=== PATIENT | female | born 1990 | race Caucasian/White ===

== ENCOUNTER 2016-05-26 19:25 | Emergency (ER) | payer MEDICAID ==
[2016-05-26 20:34] VITALS: BP 110/77
== END 2016-05-26 20:34 | disposition home or self-care (01) ==
LOC: ED 19:25
DX: N10 Acute pyelonephritis (principal); K21.9 Gastro-esophageal reflux disease without esophagitis; Z79.899 Other long term (current) drug therapy; Z88.8 Allergy status to other drugs, medicaments and biological substances
CPT/HCPCS: J0696

== ENCOUNTER 2016-06-21 00:07 | Emergency (ER) | payer MEDICAID ==
[2016-06-21 00:44] LABS: BASOPHIL % 0.1 % (0-2); PLATELET COUNT 233 x10^3mcL (130-400); RED CELL DISTRIBUTION WIDTH 13.2 % (11.5-14.5)
[2016-06-21 00:56] LABS: CALCIUM 8.8 mg/dL (8.5-10.1); CARBON DIOXIDE 23.8 mmol/L (21-32); CHLORIDE SERUM 106 mmol/L (98-107); CREATININE SERUM 0.6 mg/dL (0.6-1.0); GFR1 > 60 mL/min; GLUCOSE SERUM 100 mg/dL (74-106); POTASSIUM SERUM 3.5 mmol/L (3.5-5.1); SODIUM SERUM 140 mmol/L (136-145)
[2016-06-21 01:03] LABS: ALBUMIN 4.3 g/dL (3.4-5.0); ALKALINE PHOSPHATASE 38 U/L (46-116); ALT/SGPT 23 U/L (14-59); AST/SGOT 15 U/L (15-37); BILIRUBIN TOTAL 0.24 mg/dL (0.20-1.00); LIPASE 336 IU/L (73-393)
[2016-06-21 01:09] LABS: TOTAL PROTEIN, SERUM 8.3 g/dL (6.4-8.2)
[2016-06-21 02:32] VITALS: BP 102/60
== END 2016-06-21 02:32 | disposition home or self-care (01) ==
LOC: ED 00:07
PROVIDERS: Emergency Medicine
DX: R11.2 Nausea with vomiting, unspecified (principal); R42 Dizziness and giddiness; R10.10 Upper abdominal pain, unspecified
CPT/HCPCS: J2405; J7030

== ENCOUNTER 2016-06-28 18:59 | Emergency (ER) | payer MEDICAID ==
[2016-06-28 20:29] LABS: PLATELET COUNT 246 x10^3mcL (130-400); RED CELL DISTRIBUTION WIDTH 13.1 % (11.5-14.5)
[2016-06-28 20:37] LABS: CALCIUM 9.5 mg/dL (8.5-10.1); CARBON DIOXIDE 23.4 mmol/L (21-32); CHLORIDE SERUM 103 mmol/L (98-107); CREATININE SERUM 0.8 mg/dL (0.6-1.0); GFR1 > 60 mL/min; GLUCOSE SERUM 106 mg/dL (74-106); POTASSIUM SERUM 4.2 mmol/L (3.5-5.1); SODIUM SERUM 140 mmol/L (136-145)
[2016-06-28 20:41] LABS: ALBUMIN 4.9 g/dL (3.4-5.0); ALKALINE PHOSPHATASE 55 U/L (46-116); ALT/SGPT 30 U/L (14-59); AMYLASE 77 U/L (25-115); AST/SGOT 25 U/L (15-37); BILIRUBIN TOTAL 0.3 mg/dL (0.20-1.00); LIPASE 313 IU/L (73-393)
[2016-06-28 20:47] LABS: TOTAL PROTEIN, SERUM 9.5 g/dL (6.4-8.2)
[2016-06-28 21:06] LABS: MONOCYTE 4 % (0-7); SEGMENTED NEUTROPHILS 76 % (37-75)
[2016-06-28 21:07] LABS: BAND NEUTROPHIL 13 % (0-10); rbc morphology (normal/abnorm) NORMAL (NORMAL)
[2016-06-28 21:21] LABS: AMPHETAMINE QUAL UR NONE DETECTED (NEG <=1000)
[2016-06-29 01:13] VITALS: BP 102/60
== END 2016-06-29 01:13 | disposition home or self-care (01) ==
LOC: ED 18:59
PROVIDERS: Emergency Medicine
DX: R10.9 Unspecified abdominal pain (principal); R11.10 Vomiting, unspecified; R19.7 Diarrhea, unspecified; N92.0 Excessive and frequent menstruation with regular cycle
CPT/HCPCS: 83880; 87046; 87046-59; J2405; J3010; J7030

== ENCOUNTER 2017-02-25 13:53 | Emergency (ER) | payer OTHER ==
[2017-02-25 16:19] VITALS: BP 110/64
== END 2017-02-25 16:19 | disposition home or self-care (01) ==
LOC: ED 13:53
DX: R51 Headache (principal); Z88.8 Allergy status to other drugs, medicaments and biological substances
CPT/HCPCS: J1885; J8597; Q0163

== ENCOUNTER 2018-04-05 20:26 | Emergency (ER) | payer OTHER ==
[~2018-04-05] VITALS: Ht 157.5 cm; Wt 66.7 kg
[2018-04-05 20:33] VITALS: Ht 157.5 cm; Wt 66.7 kg
[2018-04-06 00:19] VITALS: BP 106/77
== END 2018-04-06 00:19 | disposition home or self-care (01) ==
LOC: ED 20:26
DX: R51 Headache (principal); R11.0 Nausea; H53.8 Other visual disturbances; Z88.8 Allergy status to other drugs, medicaments and biological substances
CPT/HCPCS: J0780; J1885; Q0162

== ENCOUNTER 2018-08-22 19:07 | Emergency (ER) | payer OTHER ==
[~2018-08-22] VITALS: Ht 157.5 cm; Wt 70.8 kg
[2018-08-22 19:19] VITALS: Ht 157.5 cm; Wt 70.8 kg
[2018-08-22 20:20] VITALS: BP 110/61
== END 2018-08-22 20:20 | disposition home or self-care (01) ==
LOC: ED 19:07
DX: G56.02 Carpal tunnel syndrome, left upper limb (principal); Z88.8 Allergy status to other drugs, medicaments and biological substances

== ENCOUNTER 2018-12-21 16:44 | Emergency (ER) | payer OTHER ==
[~2018-12-21] VITALS: Ht 157.5 cm; Wt 71.3 kg
[2018-12-21 17:02] VITALS: Ht 157.5 cm; Wt 71.3 kg
[2018-12-21 19:33] VITALS: BP 105/72
== END 2018-12-21 19:33 | disposition home or self-care (01) ==
LOC: ED 16:44
DX: J06.9 Acute upper respiratory infection, unspecified (principal); J04.0 Acute laryngitis; Z88.8 Allergy status to other drugs, medicaments and biological substances
CPT/HCPCS: J7512; Q0092

== ENCOUNTER 2019-03-23 23:21 | Emergency (ER) | payer OTHER ==
[~2019-03-23] VITALS: Ht 157.5 cm; Wt 73.5 kg
[2019-03-23 23:34] VITALS: Ht 157.5 cm; Wt 73.5 kg
[2019-03-24 04:12] VITALS: BP 108/61
== END 2019-03-24 04:12 | disposition home or self-care (01) ==
LOC: ED 23:21
DX: R11.2 Nausea with vomiting, unspecified (principal); R19.7 Diarrhea, unspecified